=== PATIENT | male | born 1995 | race Caucasian/White ===

== ENCOUNTER 2021-08-15 04:34 | Emergency (ER) | payer OTHER ==
[~2021-08-15] VITALS: Ht 180.3 cm; Wt 104.3 kg
[2021-08-15 05:49] LABS: HEMOGLOBIN 16.9 gm/dl (14.0-17.5); RED BLOOD COUNT 5.72 M/UL (4.20-5.50); WHITE BLOOD COUNT 20.2 K/UL (4.5-11.0)
[2021-08-15 06:01] LABS: BUN/CREATININE RATIO 6 (0-10)
[2021-08-15] MEDS ORDERED: ZOFRAN ODT 4 MG4 MG PO (06:46)
== END 2021-08-15 09:12 | disposition home or self-care (01) ==
LOC: ER1 04:34
PROVIDERS: Family Medicine
DX: U07.1 COVID-19 (principal); Z23 Encounter for immunization; D72.829 Elevated white blood cell count, unspecified; J45.909 Unspecified asthma, uncomplicated
CPT/HCPCS: 71045; 80053; 81001; 85025; 96374; 99284; J2405; M0245; Q9967; U0002

== ENCOUNTER 2021-08-19 14:44 | Emergency (ER) | payer OTHER ==
[~2021-08-19 14:44] MED LIST: ZOFRAN ODT 4 MG4 MG PO
== END 2021-08-19 15:21 | disposition left against medical advice (07) ==
LOC: ER1 14:44
DX: Z53.21 Procedure and treatment not carried out due to patient leaving prior to being seen by health care provider (principal)